=== PATIENT | male | born 1980 | race American Indian/Alaskan Native ===

== ENCOUNTER 2018-07-01 12:39 | Inpatient (IN) | payer OTHER, MEDICAID ==
[~2018-07-01] VITALS: Ht 167.6 cm; Wt 74.8 kg
[2018-07-01] MEDS ORDERED: SODIUM CHLORIDE 0.9% 1,000 ML IV ONE (13:41)
[2018-07-01 15:43] LABS: BASOPHILS % 1.2 % (0.0-2.0); EOSINOPHILS % 2.6 % (0.0-5.0); LYMPHOCYTES % 14.7 % (20.0-50.0); MEAN CORPUSCULAR HEMOGLOBIN 30.7 pg (28.0-32.0); MEAN CORPUSCULAR VOLUME 95.5 fL (80.0-94.0); MEAN PLATELET VOLUME 7.4 fl (7.4-10.4); MONOCYTES % 6.6 % (2.0-8.0); NEUTROPHILS % 74.9 % (40.0-76.0); PLATELET 132 x1000/uL (130-400); RED BLOOD CELL COUNT 1.01 mill/uL (4.7-6.1); RED CELL DISTRIBUTION WIDTH 17.8 % (11.6-14.6)
[2018-07-01 15:45] LABS: CHLORIDE 114 mEq/L (98-107)
[2018-07-01 15:47] LABS: INR 1.1; PARTIAL THROMBOPLASTIN TIME 42.8 sec (23.4-31.0); PROTHROMBIN TIME 11.6 sec (9.6-11.0)
[2018-07-01 15:49] LABS: ETHANOL BLOOD < 10 mg/dL
[2018-07-01 15:52] LABS: CLARITY URINE TURBID (CLEAR); COLOR URINE YELLOW (YELLOW); KETONES URINE NEGATIVE (NEGATIVE); LEUKOCYTE ESTERASE URINE 3+ (NEGATIVE); NITRITE URINE POSITIVE (NEGATIVE); OCCULT BLOOD URINE 3+ (NEGATIVE); PH URINE 5.5 (4.5-8.0); PROTEIN URINE 2+ (NEGATIVE); SPECIFIC GRAVITY URINE 1.011 (1.005-1.030); UROBILINOGEN URINE 0.2 E.U./dL (0.2-1.0)
[2018-07-01 15:54] LABS: HEMOGLOBIN. 3.1 g/dL (14.0-18.0)
[2018-07-01 15:55] LABS: HEMATOCRIT. 9.6 % (42.0-52.0)
[2018-07-01 16:09] LABS: *BENZODIAZEPINES SCREEN URINE NEGATIVE (NEGATIVE); *COCAINE SCREEN URINE NEGATIVE (NEGATIVE); METHADONE URINE SCREEN NEGATIVE (NEGATIVE); OPIATES URINE SCREEN NEGATIVE (NEGATIVE); PHENCYCLIDINE URINE SCREEN NEGATIVE (NEGATIVE)
[2018-07-01 16:10] LABS: *AMPHETAMINES SCREEN URINE NEGATIVE (NEGATIVE); *BARBITURATES SCREEN URINE NEGATIVE (NEGATIVE); CANNABINOID URINE SCREEN PRESUMTIVE POSITIVE (NEGATIVE)
[2018-07-01] MEDS ORDERED: CEFTRIAXONE 1 G PREMIX 50 ML IV ONE (16:15)
[2018-07-01] MEDS ORDERED: CALCIUM GLUCONATE 100MG/ML 10ML VIAL IV ONE (17:00)
[2018-07-01 17:28] LABS: BG FRACTION INSPIRED OXYGEN 21; BG HCO3 ACT 4.5 mmol/L (22.0-26.0); BG PCO2 13.6 mmHg (35.0-45.0); BG PH 7.136 (7.350-7.450); BG PO2 78.9 mmHg (75.0-100.0); BG SAMPLE SITE RIGHT BRACHIAL; BG TOTAL HEMOGLOBIN < 4.5 g/dL (12.0-18.0); BG VENT MODE ROOM AIR
[2018-07-01] MEDS ORDERED: SODIUM BICARBONATE 8.4% 1 MEQ/ML 50ML SYR IV ONE ×2 (17:45→18:15)
[2018-07-01] MEDS ORDERED: CITRIC ACID/SODIUM CITRATE SOLN 30ML UDC PO SCH (17:45)
[2018-07-01] MEDS ORDERED: CITRIC ACID/SODIUM CITRATE SOLN 30ML UDC PO NR (18:15)
[2018-07-01] MEDS ORDERED: PIPERACILLIN/TAZ 2.25G PREMIX 50 ML IV SCH ×2 (18:45→20:00)
[2018-07-01] MEDS ORDERED: EPOETIN ALFA 10000UNITS/ML VIAL SUBCUT NR (21:00)
[2018-07-01 23:15] VITALS: BP 138/86
[2018-07-01 23:30] VITALS: BP 138/86
[2018-07-02] VITALS (29 sets, daily range): BP systolic 124–166; BP diastolic 75–111
[2018-07-02] MEDS ORDERED: SODIUM BICARBONATE 8.4% 1 MEQ/ML 50ML SYR IV NR
[2018-07-02] MEDS ORDERED: ONDANSETRON HCL 4MG/2ML INJ IV PRN (08:45)
[2018-07-02] MEDS ORDERED: ACETAMINOPHEN 650MG/20.3ML UDC GT PRN (08:45)
[2018-07-02] MEDS ORDERED: CLONIDINE 0.1MG TABLET PO PRN (08:45)
[2018-07-02] MEDS ORDERED: ACETAMINOPHEN 325MG TABLET PO PRN (08:45)
[2018-07-02] MEDS ORDERED: IPRATROPIUM/ALBUTEROL 0.5-3(2.5)MG/3ML NEB INH PRN (08:45)
[2018-07-02] MEDS ORDERED: ACETAMINOPHEN 650MG SUPP PR PRN (08:45)
[2018-07-02] MEDS ORDERED: DOCUSATE SODIUM 100MG CAPSULE PO PRN (08:45)
[2018-07-02] MEDS ORDERED: NA PHOS,M-B/NA PHOS,DI-BA ENEMA 118ML PR PRN (08:45)
[2018-07-02] MEDS ORDERED: MAGNESIUM/ALUMINUM HYDROXIDE/SIMETHICONE 30ML UDC PO PRN (08:45)
[2018-07-02] MEDS ORDERED: GUAIFENESIN 200MG/10ML SUGAR FREE UDC PO PRN (08:45)
[2018-07-02 09:12] LABS: BASOPHILS % 1.2 % (0.0-2.0); LYMPHOCYTES % 12.2 % (20.0-50.0); MEAN CORPUSCULAR HEMOGLOBIN 29.3 pg (28.0-32.0); MEAN PLATELET VOLUME 7.7 fl (7.4-10.4); MONOCYTES % 6.7 % (2.0-8.0); NEUTROPHILS % 77.9 % (40.0-76.0); PLATELET 135 x1000/uL (130-400); RED BLOOD CELL COUNT 1.86 mill/uL (4.7-6.1); RED CELL DISTRIBUTION WIDTH 16.4 % (11.6-14.6)
[2018-07-02 09:18] LABS: CHLORIDE 115 mEq/L (98-107)
[2018-07-02 09:19] LABS: HEMOGLOBIN. 5.4 g/dL (14.0-18.0)
[2018-07-02 09:20] LABS: HEMATOCRIT. 16.4 % (42.0-52.0)
[2018-07-02 09:27] LABS: CREATINE KINASE 153 IU/L (39-308); TOTAL IRON BINDING CAPACITY 128 ug/dL (250-450)
[2018-07-02] MEDS ORDERED: HEPARIN 1000 UNITS/ML 10ML ONE (10:07)
[2018-07-02] MEDS ORDERED: LIDOCAINE HCL 1% 20ML VIAL (Pyxis) INJ ONE (10:07)
[2018-07-02] MEDS ORDERED: SODIUM BICARBONATE 4% (2.4MEQ) 5ML VIAL IV ONE (10:07)
[2018-07-02 10:23] LABS: PHOSPHORUS 10.7 mg/dL (2.5-4.9)
[2018-07-02] MEDS ORDERED: FENTANYL CITRATE/PF 50MCG/ML 2ML VIAL ONE (10:27)
[2018-07-02 10:42] LABS: HAPTOGLOBIN 158 mg/dL (30-200)
[2018-07-02] MEDS ORDERED: FENTANYL CITRATE/PF 50MCG/ML 2ML VIAL IV ONE (11:00)
[2018-07-02 11:26] LABS: FERRITIN 149 ng/mL (22-322); HEPATITIS B SURFACE AB 22.4 mIU/mL
[2018-07-02 11:38] LABS: HEPATITIS B SURFACE ANTIGEN NEGATIVE
[2018-07-02] MEDS: PANTOPRAZOLE SODIUM 40 MG/VIAL IV SCH (12:20)
[2018-07-02] MEDS: CALCITRIOL 0.25MCG CAPSULE PO SCH (12:21)
[2018-07-02] MEDS: CITRIC ACID/SODIUM CITRATE SOLN 30ML UDC PO SCH ×2 (12:21→18:41)
[2018-07-02] MEDS: PIPERACILLIN/TAZ 2.25G PREMIX 50 ML IV SCH ×3 (12:22→21:25)
[2018-07-02 15:15] LABS: HEMATOCRIT 16.3 % (42.0-52.0); HEMOGLOBIN 5.4 g/dL (14.0-18.0)
[2018-07-02] MEDS: CALCIUM CARBONATE 500MG TABLET CHEW PO SCH (18:51)
[2018-07-02 19:09] LABS: BASOPHILS % 1.2 % (0.0-2.0); EOSINOPHILS % 2.4 % (0.0-5.0); HEMATOCRIT. 23.1 % (42.0-52.0); HEMOGLOBIN. 8.1 g/dL (14.0-18.0); LYMPHOCYTES % 10.2 % (20.0-50.0); MEAN CORPUSCULAR VOLUME 85.7 fL (80.0-94.0); MEAN PLATELET VOLUME 7.6 fl (7.4-10.4); MONOCYTES % 7.3 % (2.0-8.0); NEUTROPHILS % 78.9 % (40.0-76.0); PLATELET 133 x1000/uL (130-400); RED CELL DISTRIBUTION WIDTH 15.4 % (11.6-14.6)
[2018-07-02 19:19] LABS: CHLORIDE 112 mEq/L (98-107)
[2018-07-02 21:12] LABS: HEMATOCRIT 22.5 % (42.0-52.0)
[2018-07-02] MEDS: EPOETIN ALFA 10000UNITS/ML VIAL SUBCUT SCH (21:24)
[2018-07-02] MEDS: SODIUM CHLORIDE 0.9% INJ 3ML FLUSH IVF SCH (21:25)
[2018-07-03] VITALS: BP 137/87
[2018-07-03 04:00] VITALS: BP 147/97
[2018-07-03 05:56] LABS: BASOPHILS % 0.7 % (0.0-2.0); EOSINOPHILS % 2.2 % (0.0-5.0); HEMATOCRIT. 22.4 % (42.0-52.0); HEMOGLOBIN. 7.8 g/dL (14.0-18.0); LYMPHOCYTES % 11.8 % (20.0-50.0); MEAN CORPUSCULAR HEMOGLOBIN 29.9 pg (28.0-32.0); MEAN CORPUSCULAR VOLUME 85.8 fL (80.0-94.0); MEAN PLATELET VOLUME 7.7 fl (7.4-10.4); MONOCYTES % 9.2 % (2.0-8.0); NEUTROPHILS % 76.1 % (40.0-76.0); PLATELET 138 x1000/uL (130-400); RED BLOOD CELL COUNT 2.62 mill/uL (4.7-6.1); RED CELL DISTRIBUTION WIDTH 15.8 % (11.6-14.6)
[2018-07-03 06:07] LABS: CHLORIDE 110 mEq/L (98-107)
[2018-07-03 06:22] LABS: LDL CHOLESTEROL 54 mg/dL (5-100)
[2018-07-03 06:23] LABS: HDL CHOLESTEROL 32 mg/dL (40-59)
[2018-07-03] MEDS: SODIUM CHLORIDE 0.9% INJ 3ML FLUSH IVF SCH ×3 (06:24→21:07)
[2018-07-03] MEDS: PIPERACILLIN/TAZ 2.25G PREMIX 50 ML IV SCH ×3 (06:24→21:07)
[2018-07-03 08:00] VITALS: BP 128/77
[2018-07-03] MEDS ORDERED: CALCIUM GLUCONATE 100MG/ML 10ML VIAL IV ONE (09:15)
[2018-07-03] MEDS: CITRIC ACID/SODIUM CITRATE SOLN 30ML UDC PO SCH (09:56)
[2018-07-03] MEDS: CALCIUM CARBONATE 500MG TABLET CHEW PO SCH ×3 (09:57→18:34)
[2018-07-03] MEDS: CALCITRIOL 0.25MCG CAPSULE PO SCH (09:57)
[2018-07-03] MEDS: PANTOPRAZOLE SODIUM 40 MG/VIAL IV SCH (09:57)
[2018-07-03] MEDS ORDERED: CALCIUM GLUCONATE 1000 MG in DEXTROSE 5% WATER 100 ML IV NR (10:30)
[2018-07-03 12:00] VITALS: BP 135/85
[2018-07-03] MEDS: HYDROCODONE/ACETAMINOPHEN 5/325MG TABLET PO PRN ×2 (12:59→20:20)
[2018-07-03 20:00] VITALS: BP 140/94
[2018-07-03] MEDS: DIPHENHYDRAMINE 50MG/ML VIAL IV PRN (20:21)
[2018-07-04] VITALS (7 sets, daily range): BP systolic 103–128; BP diastolic 66–93
[2018-07-04] MEDS: HYDROCODONE/ACETAMINOPHEN 5/325MG TABLET PO PRN ×4 (04:37→22:39)
[2018-07-04] MEDS: PIPERACILLIN/TAZ 2.25G PREMIX 50 ML IV SCH ×3 (05:01→21:50)
[2018-07-04] MEDS: SODIUM CHLORIDE 0.9% INJ 3ML FLUSH IVF SCH ×3 (05:02→21:51)
[2018-07-04 06:32] LABS: BASOPHILS % 0.8 % (0.0-2.0); EOSINOPHILS % 1.7 % (0.0-5.0); HEMATOCRIT. 25.6 % (42.0-52.0); LYMPHOCYTES % 13.2 % (20.0-50.0); MEAN CORPUSCULAR VOLUME 85.8 fL (80.0-94.0); MEAN PLATELET VOLUME 7.9 fl (7.4-10.4); MONOCYTES % 9.6 % (2.0-8.0); NEUTROPHILS % 74.7 % (40.0-76.0); PLATELET 154 x1000/uL (130-400); RED BLOOD CELL COUNT 2.99 mill/uL (4.7-6.1); RED CELL DISTRIBUTION WIDTH 15.7 % (11.6-14.6)
[2018-07-04 08:23] LABS: PHOSPHORUS 7.2 mg/dL (2.5-4.9)
[2018-07-04] MEDS: CALCIUM CARBONATE 500MG TABLET CHEW PO SCH ×3 (08:39→17:04)
[2018-07-04] MEDS: CALCITRIOL 0.25MCG CAPSULE PO SCH (08:39)
[2018-07-04] MEDS: PANTOPRAZOLE SODIUM 40 MG/VIAL IV SCH (08:40)
[2018-07-04] MEDS ORDERED: POTASSIUM CHLORIDE 20MEQ TABLET SR PO NR (17:15)
[2018-07-04] MEDS: DIPHENHYDRAMINE 50MG/ML VIAL IV PRN (21:50)
[2018-07-05 04:00] VITALS: BP 126/93
[2018-07-05] MEDS: HYDROCODONE/ACETAMINOPHEN 5/325MG TABLET PO PRN ×3 (04:13→14:15)
[2018-07-05] MEDS: PIPERACILLIN/TAZ 2.25G PREMIX 50 ML IV SCH ×3 (05:26→20:46)
[2018-07-05] MEDS: DIPHENHYDRAMINE 50MG/ML VIAL IV PRN (05:26)
[2018-07-05] MEDS: SODIUM CHLORIDE 0.9% INJ 3ML FLUSH IVF SCH ×3 (06:19→20:48)
[2018-07-05 06:37] LABS: BASOPHILS % 0.8 % (0.0-2.0); EOSINOPHILS % 4.9 % (0.0-5.0); HEMATOCRIT. 24.2 % (42.0-52.0); HEMOGLOBIN. 8.2 g/dL (14.0-18.0); LYMPHOCYTES % 18.1 % (20.0-50.0); MEAN CORPUSCULAR HEMOGLOBIN 29.9 pg (28.0-32.0); MEAN CORPUSCULAR VOLUME 87.8 fL (80.0-94.0); MEAN PLATELET VOLUME 8.2 fl (7.4-10.4); MONOCYTES % 10.9 % (2.0-8.0); NEUTROPHILS % 65.3 % (40.0-76.0); PLATELET 157 x1000/uL (130-400); RED BLOOD CELL COUNT 2.75 mill/uL (4.7-6.1); RED CELL DISTRIBUTION WIDTH 15.5 % (11.6-14.6)
[2018-07-05 08:00] VITALS: BP 130/85
[2018-07-05] MEDS: CALCITRIOL 0.25MCG CAPSULE PO SCH (08:30)
[2018-07-05] MEDS: CALCIUM CARBONATE 500MG TABLET CHEW PO SCH (08:30)
[2018-07-05] MEDS: PANTOPRAZOLE SODIUM 40 MG/VIAL IV SCH (08:30)
[2018-07-05 09:09] LABS: GLOMERULAR BASEMENT MEMB AB 3 units (0-20); HIV SCREEN 4G Non Reactive (Non Reactive)
[2018-07-05 12:00] VITALS: BP 125/85
[2018-07-05 13:06] LABS: ATYPICAL P-ANCA <1:20 titer (Neg:<1:20); CYTOPLASMIC C-ANCA <1:20 titer (Neg:<1:20); PERINUCLEAR P-ANCA <1:20 titer (Neg:<1:20)
[2018-07-05] MEDS: CALCIUM ACETATE 667MG CAPSULE PO SCH ×2 (13:45→18:29)
[2018-07-05] MEDS ORDERED: CALC667C PO (15:02)
[2018-07-05] MEDS ORDERED: CALC0.253 PO (15:02)
[2018-07-05 15:09] LABS: ANA IFA Negative (.)
[2018-07-05 16:00] VITALS: BP 130/86
[2018-07-05 17:10] LABS: ANTI-MYELOPEROXIDASE AB < 9.0 U/mL (0.0-9.0); ANTI-PROTEINASE 3 ABS < 3.5 U/mL (0.0-3.5); COMPLEMENT C3 95 mg/dL (82-167)
[2018-07-05 20:10] VITALS: BP 137/92
[2018-07-05 20:46] VITALS: BP 138/92
[2018-07-05] MEDS: EPOETIN ALFA 10000UNITS/ML VIAL SUBCUT SCH (20:46)
[2018-07-06] MEDS ORDERED: FAMOTIDINE 20MG TABLET PO SCH (09:00)
== END 2018-07-05 21:30 | disposition home or self-care (01) | DRG 469 ==
LOC: ER 12:39 → 7WST 18:03 → ENRESERV 21:40
PROVIDERS: ADMIT Family Medicine; ATTEND Family Medicine
PROC: 30233N1 Transfusion of Nonautologous Red Blood Cells into Peripheral Vein, Percutaneous Approach (ICD-10-PCS; 2018-07-01)
PROC: 0JH63XZ Insertion of Tunneled Vascular Access Device into Chest Subcutaneous Tissue and Fascia, Percutaneous Approach (ICD-10-PCS; principal; 2018-07-02)
PROC: 02H633Z Insertion of Infusion Device into Right Atrium, Percutaneous Approach (ICD-10-PCS; 2018-07-02)
PROC: B244ZZZ Ultrasonography of Right Heart (ICD-10-PCS; 2018-07-02)
PROC: B2141ZZ Fluoroscopy of Right Heart using Low Osmolar Contrast (ICD-10-PCS; 2018-07-02)
PROC: 5A1D70Z Performance of Urinary Filtration, Intermittent, Less than 6 Hours Per Day (ICD-10-PCS; 2018-07-02)
PROC: 5A1D70Z Performance of Urinary Filtration, Intermittent, Less than 6 Hours Per Day (ICD-10-PCS; 2018-07-05)
DX: N17.9 Acute kidney failure, unspecified (principal); J96.90 Respiratory failure, unspecified, unspecified whether with hypoxia or hypercapnia; J81.1 Chronic pulmonary edema; E44.0 Moderate protein-calorie malnutrition; E87.2 Acidosis; E83.51 Hypocalcemia; I12.0 Hypertensive chronic kidney disease with stage 5 chronic kidney disease or end stage renal disease; N13.30 Unspecified hydronephrosis; E87.5 Hyperkalemia; N25.81 Secondary hyperparathyroidism of renal origin; F10.20 Alcohol dependence, uncomplicated; R04.0 Epistaxis; N18.6 End stage renal disease; D64.9 Anemia, unspecified; E87.6 Hypokalemia; F12.10 Cannabis abuse, uncomplicated; Z59.0 Homelessness; Z82.49 Family history of ischemic heart disease and other diseases of the circulatory system; Z99.2 Dependence on renal dialysis; Z68.26 Body mass index [BMI] 26.0-26.9, adult
CPT/HCPCS: 36415; 36558; 36600; 71045; 76770; 76937; 77001; 80048; 80061; 80305; 80320; 82270; 82375; 82550; 82728; 83010; 83520; 83540; 83550; 83615; 83735; 83880; 83970; 84100; 84484; 85014; 85018; 86160; 86256; 86705; 86706; 86803; 86850; 86900; 86920; 87340; 87389; 93005; 93306; 96365; 96375; 99152; 99153; 99291; C1750; C9113; J0610; J0696; J0885; J1200; J1644; J2543; J3010; J3490; J7030; J7040; J7050; J7060; P9016; P9021; A4315; G0480; G0500

== ENCOUNTER 2020-03-17 12:04 | Inpatient (IN) | payer MEDICAID ==
[~2020-03-17] VITALS: Ht 170.2 cm; Wt 63.0 kg
[~2020-03-17 12:04] MED LIST: CALC0.253 PO; CALC667C PO
[2020-03-17 13:25] LABS: BASOPHILS % 1.2 % (0.0-2.0); EOSINOPHILS % 3.2 % (0.0-5.0); HEMATOCRIT. 34.3 % (42.0-52.0); HEMOGLOBIN. 11.2 g/dL (14.0-18.0); LYMPHOCYTES % 28.1 % (20.0-50.0); MEAN CORPUSCULAR HEMOGLOBIN 32.7 pg (28.0-32.0); MEAN CORPUSCULAR VOLUME 99.6 fL (80.0-94.0); MONOCYTES % 9.1 % (2.0-8.0); NEUTROPHILS % 58.4 % (40.0-76.0); PLATELET 248 x1000/uL (130-400); RED BLOOD CELL COUNT 3.44 mill/uL (4.7-6.1); RED CELL DISTRIBUTION WIDTH 13.6 % (11.6-14.6)
[2020-03-17 14:00] LABS: CHLORIDE 109 mEq/L (98-107)
[2020-03-17 14:56] LABS: PHOSPHORUS 5.3 mg/dL (2.5-4.9)
[2020-03-17] MEDS ORDERED: MAGNESIUM/ALUMINUM HYDROXIDE/SIMETHICONE 30ML UDC PO PRN (18:45)
[2020-03-17] MEDS ORDERED: ONDANSETRON HCL 4MG/2ML INJ IV PRN (18:45)
[2020-03-17] MEDS ORDERED: GUAIFENESIN 200MG/10ML SUGAR FREE UDC PO PRN (18:45)
[2020-03-17] MEDS ORDERED: CLONIDINE 0.1MG TABLET PO PRN (18:45)
[2020-03-17] MEDS ORDERED: ZOLPIDEM TARTRATE 5MG TABLET PO PRN (18:45)
[2020-03-17] MEDS ORDERED: ACETAMINOPHEN 325MG TABLET PO PRN ×2 (18:45)
[2020-03-17] MEDS ORDERED: DIPHENHYDRAMINE 50MG/ML VIAL IV PRN (18:45)
[2020-03-17 18:48] VITALS: BP 139/100
[2020-03-17 20:00] VITALS: BP 135/90
[2020-03-17] MEDS ORDERED: FAMOTIDINE 20MG TABLET PO SCH (21:00)
[2020-03-17 22:00] VITALS: BP 146/97
[2020-03-17] MEDS: SODIUM CHLORIDE 0.9% INJ 3ML FLUSH IVF SCH (22:49)
[2020-03-18] VITALS (9 sets, daily range): BP systolic 129–159; BP diastolic 54–101
[2020-03-18] MEDS: SODIUM CHLORIDE 0.9% INJ 3ML FLUSH IVF SCH ×2 (05:29→14:47)
[2020-03-18 07:56] LABS: BASOPHILS % 0.9 % (0.0-2.0); EOSINOPHILS % 3.5 % (0.0-5.0); HEMATOCRIT. 32.4 % (42.0-52.0); HEMOGLOBIN. 10.6 g/dL (14.0-18.0); LYMPHOCYTES % 25.6 % (20.0-50.0); MEAN CORPUSCULAR HEMOGLOBIN 32.5 pg (28.0-32.0); MEAN CORPUSCULAR VOLUME 98.9 fL (80.0-94.0); MEAN PLATELET VOLUME 7.8 fl (7.4-10.4); MONOCYTES % 8.8 % (2.0-8.0); NEUTROPHILS % 61.2 % (40.0-76.0); PLATELET 255 x1000/uL (130-400); RED BLOOD CELL COUNT 3.27 mill/uL (4.7-6.1); RED CELL DISTRIBUTION WIDTH 13.3 % (11.6-14.6)
[2020-03-18 08:02] LABS: PHOSPHORUS 5.6 mg/dL (2.5-4.9)
[2020-03-18] MEDS ORDERED: HEPARIN SODIUM 1,000 UNIT/1ML VIAL IV SCH (10:15)
== END 2020-03-18 16:15 | disposition home or self-care (01) | DRG 425 ==
LOC: ER 12:04 → 3WST 15:17 → EDBEDREQ 15:21 → EDBEDREQTM 15:21 → ENRESERV 16:48
PROVIDERS: ADMIT Internal Medicine; ATTEND Internal Medicine
PROC: 5A1D70Z Performance of Urinary Filtration, Intermittent, Less than 6 Hours Per Day (ICD-10-PCS; principal; 2020-03-17)
DX: E87.5 Hyperkalemia (principal); I12.0 Hypertensive chronic kidney disease with stage 5 chronic kidney disease or end stage renal disease; N18.6 End stage renal disease; D64.9 Anemia, unspecified; E83.39 Other disorders of phosphorus metabolism; E87.2 Acidosis; N13.30 Unspecified hydronephrosis; Y90.9 Presence of alcohol in blood, level not specified; F10.20 Alcohol dependence, uncomplicated; Z91.19 Patient's noncompliance with other medical treatment and regimen; Z82.49 Family history of ischemic heart disease and other diseases of the circulatory system; Z91.15 Patient's noncompliance with renal dialysis; Z99.2 Dependence on renal dialysis; Z59.0 Homelessness; N25.81 Secondary hyperparathyroidism of renal origin; R07.89 Other chest pain
CPT/HCPCS: 36415; 71045; 80048; 80053; 83880; 84100; 84484; 85025; 93005; 99285; J1200; J1644

== ENCOUNTER 2020-11-22 10:21 | Emergency (ER) | payer MEDICAID ==
[~2020-11-22] VITALS: Ht 165.1 cm; Wt 70.0 kg
[2020-11-22 11:14] VITALS: BP 166/101
[2020-11-22 11:55] LABS: BASOPHILS % 0.8 % (0.0-2.0); EOSINOPHILS % 2.6 % (0.0-5.0); HEMATOCRIT. 26.1 % (42.0-52.0); HEMOGLOBIN. 9.1 g/dL (14.0-18.0); MEAN CORPUSCULAR HEMOGLOBIN 33.6 pg (28.0-32.0); MEAN CORPUSCULAR VOLUME 95.6 fL (80.0-94.0); MEAN PLATELET VOLUME 7.2 fl (7.4-10.4); MONOCYTES % 8.6 % (2.0-8.0); PLATELET 175 x1000/uL (130-400); RED BLOOD CELL COUNT 2.73 mill/uL (4.7-6.1); RED CELL DISTRIBUTION WIDTH 12.3 % (11.6-14.6)
[2020-11-22 12:02] LABS: CHLORIDE 108 mEq/L (98-107)
[2020-11-22] MEDS ORDERED: DOXY100T2 MT (12:46)
== END 2020-11-22 12:58 | disposition left against medical advice (07) ==
LOC: ER 10:21
DX: L03.113 Cellulitis of right upper limb (principal); F12.10 Cannabis abuse, uncomplicated
CPT/HCPCS: 36415; 71045; 80053; 83880; 84484; 85025; 99284